=== PATIENT | female | born 1960 | race Caucasian/White ===

== ENCOUNTER 2021-01-05 12:22 | Emergency (ER) | payer OTHER, SELFPAY ==
--- NOTE | ~2021-01-05 | XR_ITS ---
XR ribs RT 2V w CXR 2V DATE: 01/05/2021 13:04 INDICATION: Right chest and rib pain after lifting someone TECHNIQUE: PA and lateral views. 3 views of the right ribs. COMPARISON: None FINDINGS: Normal heart size. No hilar or mediastinal enlargement. Bilateral hyperinflation. There is a calcified superior segment right lower lobe pulmonary granuloma. No pulmonary infiltrate or consolidation, pleural effusion or pulmonary vascular congestion or pneum othorax is detected. Diffuse osteopenia. Right cervical rib. There is mild focal angulation of the cortex of the anterior aspect of the right eighth rib; subtle f racture of undetermined age is suggested. IMPRESSION: Subtle focal minimal angulation deformity at the anterior right eighth rib consistent wit h fracture of uncertain age Diffuse osteopenia No active cardiopulmonary disease Reviewed, dictated and finalized at location A. IMPRESSION: Subtle focal minimal angulation deformity at the anterior right eig hth rib consistent with fracture of uncertain age Diffuse osteopenia No active cardiopulmonary disease
[2021-01-05 12:40] VITALS: BP 94/61; PULSE 81; RESP 16; TEMP 36.1; O2SAT 98
--- NOTE | 2021-01-05 13:00 | ED.BACK ---
HPI - Back Pain/Injury General Chief Complaint: Back Pain/Injury Stated Complaint: Back/Muscle strain Time Seen by Provider: 01/05/21 12:50 Source: patient Mode of arrival: ambulatory Limitations: no limitations History of Present Illness HPI Narrative: Ashley Gonzalez is a 60 yo female with PMH of osteoporosis, comes to [facility] for evaluation of right upper back pain and tenderness under right axilla after repeated moving of [id number] in wheelchair and shower. He states yesterday that she had pain just maneuvering the shower handle and earlier in the week her large pop and upper right back that radiates to under her axilla for 5 days ago. She has taken 2 doses ibuprofen no ibuprofen and Aleve with no effect; however she admits that she is continuing to do the same physical activity that has caused the initial problem Related Data Allergies Allergy/AdvReac Type Severity Reaction Status Date / Time No Known Allergies Allergy Verified 07/04/19 10:09 Review of Systems Review of Systems: Narrative: CONSTITUTIONAL: Denies fever, chills, sweats. EYES: Denies visual changes, redness, discharge. ENT: Denies rhinorrhea, congestion, sore throat, otalgia. CARDIOVASCULAR: Denies chest pain, palpitations, edema. RESPIRATORY: Denies dyspnea, wheezing, cough GASTROINTESTINAL: Denies abdominal pain, nausea, vomiting, diarrhea. GENITOURINARY: Denies dysuria, hematuria, abnormal discharge SKIN: Denies rash or itching. NEUROLOGIC: Denies numbness, or focal weakness. PSYCHIATRIC: Denies anxiety or depression. Chest wall pain under right axilla and pain in the right upper back PMFSH Past Medical History Medical History GERD (gastroesophageal reflux disease) Family History Family History Mother Hypertension Family history of heart disease in male family member before age 55 Father Family history of heart disease in male family member before age 55 Patient's father is Other Diabetes mellitus Family history of lung cancer Family history of thyroid disease Social History Social History Smoking status: Never smoker Alcohol intake: never Comments At time of signature, I agree with nursing past medical, surgical, social and family history. There is no relevant family history pertinent to the presenting complaint. Exam Narrative: Exam Narrative: GENERAL: This is a well-nourished, well-developed patient, in mild distress. HEAD: normocephalic, atraumatic. EYES: Sclera clear/white. Vision is grossly intact. EARS: External ears normal, . Hearing grossly intact. NOSE: External nose normal without nasal discharge, nares without redness, no rhinorrhea. THROAT: Mucous membranes moist, NECK: Neck supple, non-tender CARDIOVASCULAR: Regular rate and rhythm without murmurs, gallops, or rubs. RESPIRATORY: Clear to auscultation. Breath sounds equal bilaterally. No wheezes, rales, or rhonchi. Has reproducible tenderness in ribs under her right axilla GASTROINTESTINAL: Abdomen soft, non-tender, SKIN: warm, intact with no suspicious lesions or rash, good texture and turgor. NEURO: awake, alert, and oriented to person, place and time. There were no obvious focal neurologic abnormalities. Steady gait EXTREMITIES: Normal range of motion. BACK: Nontender without deformity has decreased range of motion with bending forward due to pain Course Course Emergency Course: Patient came to [facility] for evaluation of popping sound in upper right back earlier in the week and again pain under her right axilla yesterday while lifting [id number] Xray of right chest shows Subtle minimal angulation deformity at right anterior eighth rib consistent with fracture, diffuse osteopenia And ibuprofen, baclofen and incentive spirometer Should follow-up with PCP if has no
== END 2021-01-05 13:57 | disposition home or self-care (01) ==
PROVIDERS: Emergency Provider Nurse Practitioner; PCP Family Medicine
DX: S22.31XA Fracture of one rib, right side, initial encounter for closed fracture (principal); X58.XXXA Exposure to other specified factors, initial encounter; M85.88 Other specified disorders of bone density and structure, other site; K21.9 Gastro-esophageal reflux disease without esophagitis
CPT/HCPCS: 71046; 71100; 99213; G0463

== ENCOUNTER 2021-04-09 11:28 | Emergency (ER) | payer OTHER, SELFPAY ==
[2021-04-09 11:35] VITALS: BP 108/62; PULSE 64; RESP 16; TEMP 36.6; O2SAT 98
--- NOTE | 2021-04-09 11:52 | ED.HA ---
HPI - Headache General Chief Complaint: Headache Stated Complaint: Headache, vomitting Time Seen by Provider: 04/09/21 11:52 History of Present Illness HPI Narrative: Patient here to be tested for COVID-19. Patient states she was sent by the school nurse Marce to a testing site. Patient states she woke up with a headache and needs a negative COVID-19 test before she can go back to work.. Patient denies any other symptoms. 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 Patient states she is just here for COVID-19 test MD elicited complaint: headache Related Data Allergies Allergy/AdvReac Type Severity Reaction Status Date / Time No Known Allergies Allergy Verified 07/04/19 10:09 Review of Systems Review of Systems: CONSTITUTIONAL: Denies fever, chills, or sweats. EYES: Denies visual changes, redness, or discharge. ENT: Denies rhinorrhea, congestion, sore throat, or otalgia. CARDIOVASCULAR: Denies chest pain, palpitations, or edema. RESPIRATORY: Denies cough or dyspnea. GASTROINTESTINAL: Denies abdominal pain, nausea, vomiting, or diarrhea. GENITOURINARY: Denies dysuria or hematuria. SKIN: Denies rash or itching. MUSCULOSKELETAL: Denies back pain, joint pain, or myalgia. NEUROLOGIC: Denies headache, numbness, or weakness. PSYCHIATRIC: Denies anxiety or depression. [facility] Past Medical History Medical History GERD (gastroesophageal reflux disease) Family History Family History Mother Hypertension Family history of heart disease in male family member before age 55 Father Family history of heart disease in male family member before age 55 Patient's father is Other Diabetes mellitus Family history of lung cancer Family history of thyroid disease Social History Social History Smoking status: Never smoker Alcohol intake: never Comments At time of signature, agree with nursing past medical, surgical, social and family history. There is no relevant family history pertinent to the presenting complaint Exam Narrative: Patient left before exam complete Patient states her headache is resolved. Discussed with the patient that we are caught a COVID-19 testing site. Spoke with Marce school nurse and patient was to go to [facility] site in both [place]. Patient states she is going to go to that site now and left before treatment complete. Course Vital Signs Vital signs: Vital Signs Temperature 36.6 C 04/09/21 11:35 Pulse Rate 64 04/09/21 11:35 Respiratory Rate 16 04/09/21 11:35 Blood Pressure 108/62 04/09/21 11:35 Pulse Oximetry 98 04/09/21 11:35 Temperature 36.6 C 04/09/21 11:35 Pulse Rate 64 04/09/21 11:35 Respiratory Rate 16 04/09/21 11:35 Blood Pressure 108/62 04/09/21 11:35 Pulse Oximetry 98 04/09/21 11:35 MDM - Headache Differential Diagnosis Differential diagnosis: Likely migraine, tension headache, subarachnoid hemorrhage, meningitis and sinusitis Critical Care Time Critical Care Time Critical Care Time: No Discharge Plan Discharge Clinical Impression: Headache Patient Disposition: Left Without Being Seen Condition: Stable Follow-up/Referrals: PHYSICIAN,EFFICIENCY MANAGER [Primary Care Provider] -
== END 2021-04-09 11:52 | disposition left against medical advice (07) ==
PROVIDERS: Emergency Provider Nurse Practitioner Family
DX: Z53.21 Procedure and treatment not carried out due to patient leaving prior to being seen by health care provider (principal)
CPT/HCPCS: 99199

== ENCOUNTER → 2021-12-21 08:24 | Outpatient (CLI) | payer OTHER, SELFPAY ==
--- NOTE | ~2021-12-21 | MR_ITS ---
EXAMINATION: MR shoulder LT wo con DATE: 12/21/2021 09:09 INDICATION: Lateral left shoulder pain, weakness. TECHNIQUE: Magnetic resonance imaging (MRI) of the left shoulder was performed without intravenous co ntrast. Sequences included axial PD-weighted FS FSE, coronal oblique PD-weighted FS FSE and T2-weight ed FS FSE, and sagittal oblique T2-weighted FS FSE and T1-weighted FSE. COMPARISON: Shoulder radiographs 12/09/2021 FINDINGS: Coracoacromial arch: Type II acromion with mild lateral downsloping. Inferior osteophytosis off the AC joint that indents the superior surface of the cuff. Rotator cuff: Intact. Biceps tendon and glenoid labrum: Long and short heads of the biceps tendon are intact. Mild degenerative change of the otherwise intac t labrum. Fluid: No significant glenohumeral joint effusion. Small volume fluid in the subacromial subdeltoid bursa. Bones/cartilage: Mild narrowing and cartilage thinning at the glenohumeral joint. Marrow signal is benign and homogeno us. IMPRESSION: 1. Subacromial subdeltoid bursitis. Reviewed, dictated and finalized at location K.
== END ==
PROVIDERS: PCP Family Medicine; Visit Provider Orthopaedic Surgery
DX: M75.52 Bursitis of left shoulder (principal)
CPT/HCPCS: 73221

== ENCOUNTER → 2022-08-29 15:15 | Outpatient (CLI) | payer OTHER, SELFPAY ==
--- NOTE | ~2022-08-29 | MM_ITS ---
EXAMINATION: MM screening boris BI w roselia HISTORY: Screening mammogram TECHNIQUE: Craniocaudal and mediolateral oblique 3-D tomosynthesis images were obtained and synthetic 2-D images were generated. CAD analysis was submitted and interpreted. COMPARISON: No prior mammogram is available for comparison at this institution. BREAST PARENCHYMAL COMPOSITION: The breasts are heterogeneously dense, which may obscure small masses . FINDINGS: There is no evidence of suspicious mass, calcification, or architectural distortion to sugg est malignancy in either breast. There has been no suspicious interval change. IMPRESSION: 1. No mammographic evidence of malignancy. 2. Recommend routine screening mammography in one year. BI-RADS Category 1: Negative Reviewed, dictated and finalized at location A. ECT DEVELOPER
== END ==
PROVIDERS: PCP Nurse Practitioner Family; Visit Provider Obstetrics & Gynecology
DX: Z12.31 Encounter for screening mammogram for malignant neoplasm of breast (principal)
CPT/HCPCS: 77063; 77067

== ENCOUNTER 2023-06-26 18:26 | Emergency (ER) | payer OTHER, SELFPAY ==
[2023-06-26 18:47] VITALS: BP 114/74; PULSE 71; RESP 16; TEMP 36.6; O2SAT 100
[2023-06-26 18:50] VITALS: BP 114/74; PULSE 71; RESP 16; TEMP 36.6; O2SAT 100
--- NOTE | 2023-06-26 19:00 | ED.DIZZY ---
HPI - Dizziness General Chief Complaint: Dizziness Stated Complaint: Dizziness Time Seen by Provider: 06/26/23 19:00 Source: patient and RN notes reviewed Mode of arrival: ambulatory Limitations: no limitations History of Present Illness HPI Narrative: 63-year-old female presented for complaint of intermittent dizziness over the past month. Symptoms are worse when she turns her head side to side, moves her eyes, or lays flat. Endorses occasional nausea and vomiting associated with the dizziness. She reports some days are better than others, and states it appears to be slowly improving. She has been sleeping in a recliner sitting up, as symptoms are worse when she lies flat. Taking Dramamine. Denies chest pain, palpitations, shortness of breath, lethargy, fevers or chills. Reports a history of vertigo, stating it is usually after a sinus infection, and states she would like evaluated for sinus infection at this time. Related Data Home Medications Medication Instructions Recorded Confirmed calcium carbonate 500 mg calcium 500 mg PO DAILY 12/02/21 06/26/23 (1,250 mg) chewable tablet (Calcium 500) cholecalciferol (vitamin D3) 50 50 mcg PO DAILY 12/02/21 06/26/23 mcg (2,000 unit) capsule magnesium 250 mg tablet 250 mg PO DAILY 12/02/21 06/26/23 vitamin B complex 1 cap PO DAILY 12/02/21 06/26/23 vitamin K2 40 mcg tablet 40 mcg PO DAILY 12/02/21 06/26/23 zinc 50 mg tablet 50 mg PO DAILY 12/02/21 06/26/23 vzbnutof-lmp-uicug acid 200 1 tablet PO DAILY 12/09/21 06/26/23 mcg-collagen, hydrolyzed 25 mg chew tablet (Women's Multivitamin with Collagen) omega 1-cdk-sao-fish oil 1,000 mg 1 cap PO DAILY 12/09/21 06/26/23 (120 mg-180 mg) capsule (Fish Oil) Allergies Allergy/AdvReac Type Severity Reaction Status Date / Time No Known Allergies Allergy Verified 06/26/23 18:48 Review of Systems Review of Systems: CONSTITUTIONAL: Denies body aches, fever, chills, or sweats. EYES: Denies visual changes, redness, or discharge. ENT: Denies rhinorrhea, congestion, sore throat, tinnitus or otalgia . CARDIOVASCULAR: Denies chest pain, palpitations, or edema. RESPIRATORY: Denies cough or dyspnea. GASTROINTESTINAL: Reports occasional n/v denies abdominal pain or diarrhea. GENITOURINARY: Denies dysuria or hematuria. SKIN: Denies rash, itching, or wounds. MUSCULOSKELETAL: Denies back pain, joint pain, or myalgia. NEUROLOGIC: Endorses dizziness denies headache, numbness, tingling, or weakness All systems reviewed & are unremarkable except as noted in HPI and below PMFSH Past Medical History Medical History GERD (gastroesophageal reflux disease) History of COVID-19 Left shoulder pain Migraine Osteoporosis Family History Family History Mother Hypertension Family history of heart disease in male family member before age 55 Father Family history of heart disease in male family member before age 55 Patient's father is Other Diabetes mellitus Family history of lung cancer Family history of thyroid disease Social History Social History Smoking status: Never smoker Alcohol intake: never Substance use: never Substance use type: does not use Living arrangements: with family Occupation/Education: occupation 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 Please see nursing chart for further information. There is no relevant family history pertinent to the presenting complaint Exam Narrative: GENERAL: Well-appearing, well-nourished
== END 2023-06-26 19:18 | disposition home or self-care (01) ==
PROVIDERS: Emergency Provider Nurse Practitioner Family; PCP Nurse Practitioner Family
DX: H81.10 Benign paroxysmal vertigo, unspecified ear (principal); K21.9 Gastro-esophageal reflux disease without esophagitis; M81.0 Age-related osteoporosis without current pathological fracture; Z86.16 Personal history of COVID-19
CPT/HCPCS: 99213; G0463

== ENCOUNTER 2024-04-27 14:24 | Outpatient (CLI) | payer OTHER, SELFPAY ==
--- NOTE | ~2024-04-27 | DEXA_ITS ---
Bone Density Report Name: GREGORY WILSON Age: 64 Sex: Female Ethnicity: White Date of : 1960 Indication: postmenopausal; screening for osteoporosis; secondary osteoporosis; Referring Provider: JAMES JUAREZ Study: Bone densitometry was performed. Exam Date: April 27, 2024 Accession number: [id number] Bone Density: Region BMD T-score Z-score Classification AP Spine(L1-L4) 0.689 -3.3 -1.6 Osteoporosis Femoral Neck (Left) 0.544 -2.7 -1.3 Osteoporosis Total Hip (Left) 0.629 -2.6 -1.4 Osteoporosis Femoral Neck (Right) 0.560 -2.6 -1.2 Osteoporosis Total Hip (Right) 0.646 -2.4 -1.3 Osteopenia Total Hip Mean 0.637 -2.5 -1.4 Osteoporosis World Health Organization criteria for BMD impression classify patients as: Normal (T-score at or above -1.0), Osteopenia (T-score between -1.0 and -2.5), or Osteoporosis (T-score at or below -2.5). 10-year Fracture Risk: FRAX not reported because: Some T-score for Spine Total or Hip Total or Femoral Neck at or below -2.5 Clinical Information Provided by Patient: Has secondary osteoporosis Has used the following medications: Vitamin D, Calcium Patient maximum height was 60 Menopause Age: 46 No regular weight bearing exercise Does not regularly consume dairy products Drinks caffeinated beverages Onset of menses at age 15 Number of children 1 Impression: The patient has osteoporosis, based on the Total Spine T-score. Discussion: INCREASED RISK OF FRACTURE. BONE DENSITY IS UNDESIRABLY LOW AT ONE OR MORE SKELETAL SITES, CONSISTENT WITH POSTMENOPAUSAL OSTEOPOROSIS. This patient's lowest T-score meets the World Health Organization's (WHO) criteria for osteoporosis at one or more sites (T-score -2.5 or below). In untreated patients, the risk of osteoporotic fracture increases approximately two-fold for each 1.0 SD decrease in T-score. Low bone density is not the only risk factor for fracture; also consider factors such as patient's age, frailty or poor health, risk of falling, risk of injury, previous osteoporotic fracture, family history of osteoporosis, cigarette smoking, low body weight, etc. Not everyone with low bone mineral density has osteoporosis; osteomalacia and other metabolic bone disorders should also be considered. Patients who have osteoporosis should be evaluated for specific diseases and conditions (secondary causes) that may cause or contribute to bone loss. The [place] Association of Clinical Endocrinologists (AACE) and National Osteoporosis Foundation (NOF) recommend pharmacologic intervention for all postmenopausal women whose T-score is in this range. The patient should follow a healthful lifestyle (good nutrition with adequate calcium and vitamin D, and appropriate weight-bearing exercise). Follow-Up: Consider a repeat BMD and Vertebral Fr
== END 2024-04-27 14:25 | disposition home or self-care (01) ==
LOC: ANHIMG 14:28
PROVIDERS: PCP Nurse Practitioner Family; Visit Provider Obstetrics & Gynecology
DX: Z12.31 Encounter for screening mammogram for malignant neoplasm of breast (principal); M81.0 Age-related osteoporosis without current pathological fracture; M85.851 Other specified disorders of bone density and structure, right thigh
CPT/HCPCS: 77080

== ENCOUNTER 2024-07-20 09:00 | Outpatient (CLI) | payer OTHER, SELFPAY ==
--- NOTE | ~2024-07-20 | MMUS_ITS ---
EXAMINATION: MM diagnostic boris BI w roselia, US breast BI complete HISTORY: Breast tenderness. TECHNIQUE: Additional 3-D tomosynthesis images of the breasts were performed and synthetic 2-D images were generated. CAD analysis was submitted and interpreted. High resolution complete bilateral breas t ultrasound was performed. COMPARISON: 08/29/2022 BREAST PARENCHYMAL COMPOSITION: Dense: The breasts are heterogeneously dense, which may obscure small masses FINDINGS: MAMMOGRAPHIC FINDINGS: There are no suspicious masses, calcifications or architectural distortion in either breast to sugges t malignancy ULTRASOUND: Complete US of all 4 quadrants of the breast/s and retroareolar region was reviewed. There is normal heterogeneous echotexture within both breasts without evidence for focal solid or cystic mass. IMPRESSION: 1. No evidence for malignancy in either breast. 2. Routine yearly screening mammogram and regular clinical breast examination are recommended. BI-RADS Category 1: Negative Reviewed, dictated and finalized at location B. NFORMATICS ASSISTANT IMPRESSION: 1. No evidence for malignancy in either breast. 2. Routine yearly screening mammogram and regular clinical breast examination a re recommended. BI-RADS Category 1: Negative
== END 2024-07-20 09:01 | disposition home or self-care (01) ==
LOC: MICIMG 09:00
PROVIDERS: PCP Obstetrics & Gynecology; Visit Provider Obstetrics & Gynecology
DX: N64.4 Mastodynia (principal)
CPT/HCPCS: 76641; 77062; 77066; G0279